=== PATIENT | male | born 1960 | race Caucasian/White ===

== ENCOUNTER 2022-01-27 04:13 | Observation (INO) | payer BC ==
[2022-01-27 05:01] LABS: #Eosinphils 0.3 10x3/uL (0.0-0.5); #Monocytes 0.6 10x3/uL (0.0-1.1); #Neutrophils 2.5 10x3/uL (1.5-8.4); %Basophils 0.4 % (0.0-2.0); %Eosinophils 5.5 % (0.0-6.0); %Lymphocytes 27.2 % (18.0-47.0); %Monocytes 13.5 % (0.0-10.0); Hemoglobin 14.5 g/dL (13.5-17.5); Mean Corpuscular HGB CONC 34.4 g/dL (32.0-36.0); Mean Corpuscular Hemoglobin 31.9 pg (27.0-33.0); Mean Corpuscular Volume 92.7 fl (81.2-95.1); Mean Platelet Volume 10.3 fl (7.4-10.4); Platelet Count 186 10x3/uL (150-450); RBC Distribution Width 12.9 % (11.5-14.5); Red Blood Cell (RBC) Count 4.55 10x6/uL (4.32-5.72); White Blood Cell (WBC) Count 4.7 10x3/uL (3.5-10.5)
[2022-01-27 05:21] LABS: ALT (SGPT) 16 U/L (8-55); AST (SGOT) 19 U/L (5-34); Albumin 3.6 g/dL (3.4-4.8); Alkaline Phosphatase 56 U/L (40-110); Anion Gap 15 mmol/L (10-20); BUN (Urea Nitrogen) 14 mg/dL (8.4-25.7); Bilirubin, Total 0.4 mg/dL (0.2-1.2); Calc. Creatinine Clearance 0 mL/min (70-130); Calcium 8.6 mg/dL (7.8-10.44); Carbon Dioxide 22 mmol/L (23-31); Chloride 107 mmol/L (98-107); Globulin 3.2 g/dL (2.4-3.5); Glucose 96 mg/dL (80-115); PTT 28.8 sec (22.0-33.0); Potassium 4.3 mmol/L (3.5-5.1); Protein, Total 6.8 g/dL (5.8-8.1); Prothrombin Time 10.9 sec (9.5-12.1); Sodium 140 mmol/L (136-145)
[2022-01-27] MEDS ORDERED: Calcium Carbonate 500 MG ChewTAB PO PRN (06:02)
[2022-01-27] MEDS ORDERED: Guaifenesin DM 100-10/5 ML UDCUP PO PRN (06:02)
[2022-01-27] MEDS ORDERED: Acetaminophen 325 MG TAB PO PRN (06:02)
[2022-01-27] MEDS ORDERED: Senokot S 8.6-50 MG TAB PO PRN (06:02)
[2022-01-27] MEDS ORDERED: Ondansetron PF 4 MG/2 ML Vial IVP PRN (06:02)
[2022-01-27] MEDS ORDERED: hydrALAZINE 20 MG/ML VIAL SLOW IVP PRN (06:02)
[2022-01-27] MEDS ORDERED: Lorazepam 2 MG/ML VIAL SLOW IVP PRN (06:07)
[2022-01-27 06:24] LABS: SARS-CoV-2 NAA Rapid Test Not Detected (NotDetected)
[2022-01-27] MEDS ORDERED: Thiamine HCl 200 MG/2 ML VIAL SLOW IVP SCH (06:30)
[2022-01-27 06:47] LABS: Alcohol Less than 10 mg/dL (Less than 10); CK (CPK) 41 U/L (30-200); Cardiac Risk 2.5 (Less than 4.5); Cholesterol 127 mg/dl (< 200 Desired); HDL Cholesterol 51 mg/dL (>60 Neg Risk); LDL Cholesterol, Calculated 64 mg/dL; Magnesium 1.9 mg/dL (1.6-2.6); Phosphorus 3.2 mg/dL (2.3-4.7); Triglycerides 58 mg/dL (Less than 150)
[2022-01-27] MEDS ORDERED: Thiamine HCl 200 MG/2 ML VIAL ONE (07:51)
[2022-01-27 08:29] LABS: Amphetamine Not Detected (NotDetected); Barbiturates Screen Not Detected (NotDetected); Benzodiazepine Screen Not Detected (NotDetected); Cocaine Metabolite Screen Not Detected (NotDetected); Methadone Not Detected (NotDetected); Methamphetamine Not Detected (NotDetected); Opiate Screen Not Detected (NotDetected); Oxycodone Screen Not Detected (NotDetected); Phencyclidine (PCP) Not Detected (NotDetected); THC/Cannabinoid Screen Not Detected (NotDetected); Tricyclic Screen Not Detected (NotDetected)
[2022-01-27 08:29] LABS: Free T4 (Free Thyroxine) 0.92 ng/dL (0.70-1.48)
[2022-01-27] MEDS ORDERED: Clopidogrel Bisulfate 75 MG TAB ONE (08:34)
[2022-01-27] MEDS ORDERED: Multivitamin W/ Minerals 1 TAB ONE (08:35)
[2022-01-27] MEDS ORDERED: Folic Acid 1 MG TAB ONE (08:36)
[2022-01-27] MEDS ORDERED: Enoxaparin Sodium 40 MG/0.4 ML SYRINGE ONE (08:36)
[2022-01-27] MEDS: Enoxaparin Sodium 40 MG/0.4 ML SYRINGE SC SCH (08:59)
[2022-01-27] MEDS: Multivitamin W/ Minerals 1 TAB PO SCH (08:59)
[2022-01-27] MEDS: Clopidogrel Bisulfate 75 MG TAB PO SCH (08:59)
[2022-01-27] MEDS: Folic Acid 1 MG TAB PO SCH (08:59)
[2022-01-27] MEDS: Flecainide 50 MG TAB PO SCH ×2 (08:59→20:03)
[2022-01-27 11:30] VITALS: BMI 35.2
[2022-01-27] MEDS ORDERED: Iopamidol 370 76% 100 ML VIAL ONE (12:01)
[2022-01-27] MEDS ORDERED: Atorvastatin Calcium 40 MG TAB PO SCH (21:00)
[2022-01-28] MEDS: Flecainide 50 MG TAB PO SCH (08:58)
[2022-01-28] MEDS: Folic Acid 1 MG TAB PO SCH (08:59)
[2022-01-28] MEDS: Enoxaparin Sodium 40 MG/0.4 ML SYRINGE SC SCH (09:00)
[2022-01-28] MEDS ORDERED: Thiamine 100 MG TAB PO SCH (09:00)
[2022-01-28] MEDS: Clopidogrel Bisulfate 75 MG TAB PO SCH (09:00)
[2022-01-28] MEDS: Multivitamin W/ Minerals 1 TAB PO SCH (09:00)
[2022-01-28] MEDS ORDERED: Metoprolol Tartrate 50 MG TAB PO SCH ×2 (16:00→21:00)
[2022-01-28] MEDS ORDERED: Aspirin 81 mg Enteric Coated Tablet PO SCH (16:00)
[2022-01-28] MEDS ORDERED: Lisinopril 10 MG TAB PO SCH (16:00)
[2022-01-28 16:12] VITALS: BP 184/87
[2022-01-28 16:57] VITALS: TEMP 97.8
[2022-01-29] MEDS ORDERED: Aspirin Chewable 81 MG TAB PO SCH (09:00)
[2022-01-29] MEDS ORDERED: Metoprolol Tartrate 50 MG TAB PO SCH (09:00)
[2022-01-29] MEDS ORDERED: Lisinopril 20 MG TAB PO SCH ×2 (09:00)
== END 2022-01-28 17:15 | disposition home or self-care (01) ==
LOC: CSHERS 04:13 → CSHERHOLD 07:26 → INTOOBSV 07:26 → CSHTELE 10:40
PROVIDERS: ADMIT Family Medicine; ATTEND Family Medicine
DX: G45.9 Transient cerebral ischemic attack, unspecified (principal); I11.0 Hypertensive heart disease with heart failure; I50.22 Chronic systolic (congestive) heart failure; I48.0 Paroxysmal atrial fibrillation; F10.10 Alcohol abuse, uncomplicated; F17.290 Nicotine dependence, other tobacco product, uncomplicated; K21.9 Gastro-esophageal reflux disease without esophagitis; E66.01 Morbid (severe) obesity due to excess calories; Z68.35 Body mass index [BMI] 35.0-35.9, adult; Z79.82 Long term (current) use of aspirin; Z79.899 Other long term (current) drug therapy; Z88.5 Allergy status to narcotic agent; Z20.822 Contact with and (suspected) exposure to COVID-19; Y90.0 Blood alcohol level of less than 20 mg/100 ml
CPT/HCPCS: 36416; 70450; 70496; 70498; 70551; 71045; 80053; 80061; 80306; 80307; 82550; 83735; 84100; 84439; 84443; 84484; 85025; 85610; 85730; 93005; 93306; 96372; 96374; G0378; J1650; J3411; Q9967; U0002